=== PATIENT | female | born 1970 | race African-American/Black ===

== ENCOUNTER 2020-09-29 07:55 | Emergency (ER) | payer SELFPAY ==
[~2020-09-29] VITALS: Ht 149.9 cm; Wt 68.0 kg
[2020-09-29] MEDS ORDERED: SODIUM CHLORIDE 0.9% 1,000 ML IV ONE (08:45)
[2020-09-29] MEDS ORDERED: ACETAMINOPHEN 325MG TABLET PO ONE (08:45)
[2020-09-29 09:26] LABS: BASOPHILS % 0.5 % (0.0-2.0); EOSINOPHILS % 0.4 % (0.0-5.0); HEMATOCRIT. 40.1 % (36.0-48.0); HEMOGLOBIN. 13.6 g/dL (12.0-16.0); LYMPHOCYTES % 26.1 % (20.0-50.0); MEAN CORPUSCULAR HEMOGLOBIN 31.8 pg (28.0-32.0); MEAN CORPUSCULAR VOLUME 93.3 fL (81.0-99.0); MEAN PLATELET VOLUME 7.9 fl (7.4-10.4); MONOCYTES % 7.2 % (2.0-8.0); NEUTROPHILS % 65.8 % (40.0-76.0); PLATELET 296 x1000/uL (130-400); RED CELL DISTRIBUTION WIDTH 15.1 % (11.6-14.6)
[2020-09-29] MEDS ORDERED: IBUPROFEN 600MG TABLET PO ONE (09:30)
[2020-09-29 09:37] LABS: CHLORIDE 105 mEq/L (98-107)
[2020-09-29 09:41] LABS: ETHANOL BLOOD 68 mg/dL
[2020-09-29 09:44] LABS: HCG SCREEN NEGATIVE
[2020-09-29 11:03] VITALS: BP 147/92
== END 2020-09-29 11:20 | disposition home or self-care (01) ==
LOC: ER 07:55
DX: S62.667A Nondisplaced fracture of distal phalanx of left little finger, initial encounter for closed fracture (principal); S83.92XA Sprain of unspecified site of left knee, initial encounter; S00.83XA Contusion of other part of head, initial encounter; I10 Essential (primary) hypertension; J45.909 Unspecified asthma, uncomplicated; F10.10 Alcohol abuse, uncomplicated; Y90.3 Blood alcohol level of 60-79 mg/100 ml; Z88.0 Allergy status to penicillin; Y08.89XA Assault by other specified means, initial encounter; Y93.89 Activity, other specified; Y92.018 Other place in single-family (private) house as the place of occurrence of the external cause
CPT/HCPCS: 29130; 36415; 70450; 70486; 71045; 73130; 73562; 80053; 80320; 83880; 84484; 84703; 85025; 96360; 99285; J7030; G0480